=== PATIENT | female | born 1960 | race Two or more races ===

== ENCOUNTER 2020-11-21 10:13 | Emergency (ER) | payer SELFPAY ==
[~2020-11-21] VITALS: Ht 157.5 cm; Wt 72.6 kg
[2020-11-21 10:40] VITALS: BP 160/94
[2020-11-21] MEDS ORDERED: KETOROLAC TROMETH 60MG/2ML VIAL IM ONE (11:30)
== END 2020-11-21 11:57 | disposition home or self-care (01) ==
LOC: ER 10:13
DX: M51.16 Intervertebral disc disorders with radiculopathy, lumbar region (principal)
CPT/HCPCS: 72100; 96372; 99283; J1885

== ENCOUNTER 2023-12-29 10:03 | Emergency (ER) | payer OTHER ==
[~2023-12-29] VITALS: Ht 157.5 cm; Wt 68.0 kg
--- NOTE | 2023-12-29 10:27 | ECG ---
[facility] Test Date: 2023-12-29 Test Time: 10:24:17 Pat Name: SETH NICHOLS Department: ER Room: Gender: F Research Project Coordinator: KIERSTEN : 1960 Requested By: DOUG MURILLO Order Number: [id number] Reading MD: Christoph Parks Measurements Intervals [place] Rate: 60 P: 37 TX: 152 QRS: 54 QRSD: 98 T: 71 QT: 429 QTc: 429 Interpretive Statements Sinus rhythm Low voltage, precordial leads Nonspecific T abnormalities, anterior leads Electronically Signed On 12-29-2023 12:55:15 PST by Christoph Parks Please click the below link to view image of tracing.
--- NOTE | 2023-12-29 10:39 | ED.PDOC ---
HPI (NEURO) HPI Comments This is a 63-year-old female who comes into the ED with chief complain of left- sided weakness. She has a past medical history relevant for hypothyroidism. 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 She also mentions having some vision changes such as blurry vision. She stated that she had a syncope event last year as well as weakness episodes. Denies any recent sick contacts or having any fevers, chills, cough, sore throat, chest pain, shortness of breath, abdominal pain, nausea, vomiting, diarrhea, constipation. Chief Complaint: Dizziness Time Seen by MD: 10:04 Primary Care Provider: UNKNOWN Reviewed Notes: Nurses Notes Mode of Arrival: Ambulatory Severity: Mild Dizziness/Weakness Severity: Does not affect activitie Headache Severity: Mild Timing: Hours Duration: Since onset Past Medical History PAST MEDICAL HISTORY: Denies Surgical History: Appendectomy CONVICT GUARD History: Denies all CONVICT GUARD Hx Family History Family History: Reviewed,noncontributory to illness Social History Smoker: Non-Smoker Alcohol: Denies ETOH Use Drugs: Denies Drug Use Lives In: Home Constitutional: denies: chills, diaphoresis, fatigue, fever, malaise, sweats, weakness, others EENTM: reports: ear pain; denies: blurred vision, double vision, ear bleeding, ear discharge, ear drainage, ear ringing, eye pain, eye redness, hearing loss, mouth pain, mouth swelling, nasal discharge, nose bleeding, nose congestion, nose pain, photophobia, tearing, throat pain, throat swelling, voice changes, ot hers Respiratory: denies: cough, hemoptysis, orthopnea, SOB at rest, shortness of breath, SOB with excertion, stridor, wheezing, others Cardiovascular: denies: chest pain, dizzy spells, diaphoresis, Dyspnea on ex ertion, edema, irregular heart beat, left arm pain, lightheadedness, palpitations, PND, syncope, others Gastrointestinal: denies: abdomen distended, abdominal pain, blood streaked bowels, constipated, diarrhea, dysphagia, difficulty swallowing, hematemesis, melena, nausea, poor appetite, poor fluid intake, rectal bleeding, rectal pain, vomiting, others Genitourinary: denies: abnormal vagina bleeding, burning, dyspareunia, dysuria, flank pain, frequency, hematuria, incontinence, pain, , vagina discharge, urgency, others Neurological: reports: dizziness, headache, paresthesia, tingling, weakness; denies: fainting, left sided numbness, left sided weakness, numbness, pre- existing deficit, right sided numbness, right sided weakness, seizure, speech problems, tremors, others Musculoskeletal: denies: back pain, gout, joint pain, joint swelling, muscle pain, muscle stiffness, neck pain, others Integumetry: denies: bruises, change in color, change in hair/nails, dryness, laceration, lesions, lumps, rash, wounds, others Allergic/Immunocompromised: denies: Difficulty Healing, Frequent Infections, Hives, Itching, others Hematologic/Lymphatic: denies: anemia, blood clots, easy bleeding, easy bruising, swollen glands, others Endocrine: denies: excessive hunger, excessive sweating, excessive thirst, excessive urination, flushing, intolerance to cold, intolerance to heat, unexplained weight gain, unexplained weight loss, others Psychiatric: denies: anxiety, bipolar disorder, depression, hopeless, panic disorder, schizophrenia, sleepless, suicidal, others Physical Exam General Appearance: Mild Distress, Normal HEENT: Normal ENT Inspection, Pharynx Normal, TMs Normal Neck: Full Range of Motion, Non-Tender, Normal, Normal Inspection Respiratory: Chest Non-Tender, Lungs Clear, No Accessory Muscle Use, No Respiratory Distress, Normal Breath Sounds Cardiovascular: No Edema, No JVD, No Murmur, No Gallop, Normal Peripheral Pulses, Regular Rate/Rhythm Breast Exam: Deferred Gastrointestinal: No Organomegaly, Non Tender, No Pulsatile Mass, Normal Bowel Sounds, Soft Genitalia: Deferred Pelvic: Deferred Rectal: Deferred Extremities: No calf tenderness, Normal capillary refill, Normal inspection, Normal range of motion, Non-tender, No pedal edema 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 Was a procedure done?: No Differential Diagnosis (SZ) Seizure: CVA/TIA CVA: Haney's Palsy, Electrolyte Imbalance General Weakness: Labyrinthitis, Vertigo: central, Vertigo: peripheral, Vestibular neuronitis Headache: Migraine X-Ray, Labs, Meds, VS Vital Signs Date Time Temp Pulse Resp B/P (MAP) Pulse Ox O2 Delivery O2 Flow Rate FiO2 12/29/23 11:35 70 18 100 Room Air* 0 21 12/29/23 11:31 97.8 70 18 130/76 (94) 100 97.8 12/29/23 10:24 60 12/29/23 10:12 98.0 72 17 154/91 (112) 95 Lab Test 12/29/23 11:50 12/29/23 11:48 12/29/23 10:40 Range/Units Urine Color Colorless Yellow Urine Clarity Clear Clear Urine pH 5.5 5.0-9.0 Urine Specific [place] 1.005 1.001-1.035 Urine Protein Negative Negative Urine Ketones Negative Negative Urine Blood Negative Negative /uL Urine Nitrite Negative Negative Urine Bilirubin Negative Negative Urine Urobilinogen Normal Negative mg/dL Urine Leukocyte Esterase Negative Negative /uL Urine RBC None seen 0 - 4 /hpf Urine WBC <1 0 - 5 /hpf Urine Squamous Epithelial Cells None seen <5 /hpf Urine Bacteria None seen None Seen /hpf Urine Glucose Normal Normal mg/dL POC Glucose 92 70-106 mg/dl White Blood Count 4.5 4.4-10.8 10^3/uL Red Blood Count 4.76 4.0-5.20 10^6/uL Hemoglobin 14.7 12.2-16.2 g/dL Hematocrit 43.1 36.0-46.0 % Mean Corpuscular Volume 90.4 80.0-100.0 fL Mean Corpuscular Hemoglobin 31.0 28.0-32.0 pg Mean Corpuscular Hemoglobin Concent 34.2 32.0-36.0 g/dL Red Cell Distribution Width 13.8 11.8-14.3 % Platelet Count 211 140-450 10^3/uL Mean Platelet Volume 8.2 6.9-10.8 fL Neutrophils (%) (Auto) 46.2 37.0-80.0 % Lymphocytes (%) (Auto) 41.4 10.0-50.0 % Monocytes (%) (Auto) 7.4 0.0-12.0 % Eosinophils (%) (Auto) 4.1 0.0-7.0 % Basophils (%) (Auto) 0.9 0.0-2.0 % Neutrophils # (Auto) 2.1 1.6-8.6 10 ^3/uL Lymphocytes # (Auto) 1.9 0.4-5.4 10 ^3/uL Monocytes # (Auto) 0.3 0-1.3 10 ^3/uL Eosinophils # (Auto) 0.2 0-0.8 10 ^3/uL Basophils # (Auto) 0 0-0.2 10 ^3/uL Nucleated Red Blood Cells 0.1 % Sodium Level 142 136-145 mmol/L Potassium Level 4.0 3.5-5.1 mmol/L Chloride Level 108 H 98-107 mmol/L Carbon Dioxide Level 28 20-31 mmol/L Anion Gap 6 5-15 Blood Urea Nitrogen 10 9-23 mg/dL Creatinine 0.88 0.550-1.02 mg/dL Glomerular Filtration Rate Calc 73 >90 mL/min BUN/Creatinine Ratio 11.4 10.0-20.0 Serum Glucose 102 74-106 mg/dL Calcium Level 9.9 8.7-10.4 mg/dL Thyroid Stimulating Hormone (TSH) 4.31 0.55-4.78 uIU/mL Current Medications Medications (Trade) Dose Ordered Sig/Selene Route Start Time Stop Time Status Last Admin Meclizine HCl (Antivert Tablet) 50 mg ONCE ONCE PO 12/29/23 11:30 12/29/23 12:16 DC 12/29/23 11:33 On my initial examination, patient appeared in mild distress due to left-sided weakness, strength was 5/5 in all extremities, she was able to walk, noted laterality into the left, HEENT examination revealed possible peripheral vertigo, Romberg was positive, noted drooping of the left side of the lip, able to raise eyebrows, close eyes, without any weakness. We will perform otoscopy which did not reveal any acute signs of infection. We will order CBC, BMP, TSH, UA, head CT. We will continue to reassess. Head CT was unremarkable for any acute neurologic abnormality. CBC was also unremarkable. We will prescribe meclizine 50 mg p.o. once. TSH was normal. On reassessment patient still complain of dizziness. Brain MRI might be needed, we will put the patient up for admission. Spoke to perez, ashish auth number: [id number] Images Reviewed?: Images reviewed and evaluated by me Time of 1ST Reevaluation: 10:28 Reevaluation 1ST: Unchanged Time of 2ND Reevaluation: 11:55 Reevaluation 2ND: Improved Patient Education/Counseling: Diagnosis, Treatment Family Education/Counseling: No Family Present Departure 1 Departure Time of Disposition: 12:03 Impression: Primary Impression: TIA (transient ischemic attack) Additional Impressions: Peripheral vertigo Vestibular neuronitis Labyrinthitis Otitis media CVA (cerebral vascular accident) Hypothyroidism Disposition: ADMITTED INPATIENT Condition: Guarded Critical Care Note Critical Care Time?: No Stability Stability form required: No Heart Score Heart Score: Heart Score Response (Comments) Value History N/A 0 EKG Normal 0 Age >65 2 Risk Factors 1 or 2 risk factors 1 Troponin N/A 0 Total 3 DOUG MALCOLM RESIDENT Dec 29, 2023 10:39
--- NOTE | 2023-12-29 10:52 | DVH ---
EXAM: CT HEAD WITHOUT CONTRAST HISTORY: left sided weakness, dizziness COMPARISON: None TECHNIQUE: Axial images of the head were obtained and reformatted in coronal and sagittal planes. All CT scans at this medical facility are performed using dose modulation techniques as appropriate t o a performed exam including the following: Automated exposure control was utilized; adjustment of th e MA and/or KV according to patient size; and use of iterative reconstruction technique. CT Dose: CTDI volume is 51.63 mGy. Dose-length product is 863.9 mGy*cm FINDINGS: There is no evidence of acute intracranial hemorrhage, mass, mass effect midline shift. There is no h ydrocephalus or extra-axial fluid collection. Davidson-white matter differentiation is maintained.. The visualized paranasal sinuses and mastoid air cells are clear. The calvarium is intact. IMPRESSION: 1. No acute intracranial process. HS:Y
[2023-12-29 11:19] LABS: Basophils # (auto) 0 10 ^3/uL (0-0.2); Basophils % (auto) 0.9 % (0.0-2.0); Eosinophils # (auto) 0.2 10 ^3/uL (0-0.8); Eosinophils % (auto) 4.1 % (0.0-7.0); Hematocrit 43.1 % (36.0-46.0); Hemoglobin 14.7 g/dL (12.2-16.2); Lymphocytes # (auto) 1.9 10 ^3/uL (0.4-5.4); Lymphocytes % (auto) 41.4 % (10.0-50.0); Mean Corpuscular Hgb Conc. 34.2 g/dL (32.0-36.0); Mean Corpuscular Volume 90.4 fL (80.0-100.0); Monocytes # (auto) 0.3 10 ^3/uL (0-1.3); Monocytes % (auto) 7.4 % (0.0-12.0); Neutrophils # (auto) 2.1 10 ^3/uL (1.6-8.6); Neutrophils % (auto) 46.2 % (37.0-80.0); Nucleated Red Blood Cells % 0.1 %; Platelet Count (auto) 211 10^3/uL (140-450); Red Blood Cells 4.76 10^6/uL (4.0-5.20); Red Cell Distribution Width 13.8 % (11.8-14.3); White Blood Cell 4.5 10^3/uL (4.4-10.8)
[2023-12-29] MEDS: MECLIZINE HCL 25 MG TAB PO ONE (11:33)
[2023-12-29 11:35] VITALS: PULSE 70; RESP 18; O2SAT 100
[2023-12-29 12:25] LABS: Chloride 108 mmol/L (98-107)
[2023-12-29 12:26] LABS: Anion Gap 6 (5-15); Carbon Dioxide 28 mmol/L (20-31); Sodium 142 mmol/L (136-145)
[2023-12-29 12:27] LABS: Calcium 9.9 mg/dL (8.7-10.4)
[2023-12-29 12:32] LABS: BUN/Creatinine Ratio 11.4 (10.0-20.0); Blood Urea Nitrogen 10 mg/dL (9-23); Glucose 102 mg/dL (74-106)
[2023-12-29 12:57] LABS: Urine Bacteria None Seen /hpf (None Seen)
[2023-12-29 13:15] LABS: Urine Blood Negative /uL (Negative); Urine Clarity Clear (Clear); Urine Color Colorless (Yellow); Urine Protein, UAD Negative (Negative); Urine Specific Gravity 1.005 (1.001-1.035); Urine Urobilinogen Normal (Negative); Urine WBC <1 /hpf (0 - 5); Urine pH 5.5 (5.0-9.0)
[2023-12-29 15:15] VITALS: PULSE 64; RESP 14; O2SAT 97
[2023-12-29] MEDS ORDERED: ONDANSETRON HCL 4 MG/2 ML VIAL IV PRN (16:00)
[2023-12-29] MEDS ORDERED: ACETAMINOPHEN 325 MG TAB PO PRN (16:00)
[2023-12-29] MEDS ORDERED: LEVO50TA7 PO (16:29)
--- NOTE | 2023-12-29 16:38 | DVHHP2 ---
History of Present Illness Reason for Visit: Dizziness and paresthesias History of Present Illness 63-year-old female who came to the ED with chief complaint of left-sided weakness. Patient has a past medical history hypothyroidism. 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 Patient states she has experienced episodes like this previously, the most recent being last year. CT of the head does not show any intracranial abnormalities. Neurology consult placed. Patient denies chest pain, headache, diaphoresis, shortness of breath, abdominal pain, no nausea, vomiting, fever, or chills endorsed by the patient. Patient was admitted for further evaluation medical management. Past Medical History Hypothyroid Past Surgical History Appendectomy Family History Reviewed noncontributory to the management of this case Smoke: No ALCOHOL: none Drugs: None Lives: Alone Review of Systems Constitutional: No: Fever, Chills, Sweats, Weakness, Malaise, Other Eyes: No: Pain, Vision change, Conjunctivae inflammation, Eyelid inflammation, Other, Redness ENT: Ear pain (Left); No: Ear discharge, Nose pain, Nose discharge, Nose congestion, Mouth pain, Mouth swelling, Throat pain, Throat swelling, Other Respiratory: No: Cough, Dry, Shortness of breath, SOB with excertion, Wheezing, Hemoptysis, Pleuritic Pain, Sputum, Wheezing, Other Cardiovascular: No: Chest Pain, Palpitations, Orthopnea, Paroxysmal Noc. Dyspnea, Edema, Lt Headedness, Other Gastrointestinal: No: Nausea, Vomiting, Abdominal Pain, Diarrhea, Constipation, Melena, Hematochezia, Other Genitourinary: No Dysuria, No Frequency, No Incontinence, No Hematuria, No Retention, No Other Musculoskeletal: No: other, neck pain, shoulder pain, arm pain, back pain, hand pain, leg pain, foot pain Skin: No: Rash, Lesions, Jaundice, Bruising, Other Neurological: Numbness (Left-sided tingling); No: Weakness, Incoordination, Change in speech, Confusion, Seizures, Other Allergies: Coded Allergies: NO KNOWN ALLERGIES (Unverified , 11/21/20) Medications Current Medications Medications Dose Ordered Sig/Selene Route Start Time Stop Time Status Last Admin Dose Admin Acetaminophen 650 mg Q6HP PRN PO 12/29/23 16:00 Ondansetron HCl 4 mg Q4HP PRN IV 12/29/23 16:00 Exam Vital Signs Vital Signs Date Time Temp Pulse Resp B/P (MAP) Pulse Ox O2 Delivery O2 Flow Rate FiO2 12/29/23 15:15 64 14 97 Room Air* 0 21 12/29/23 15:15 97.9 149/56 (87) 97.9 General Appearance: Alert, Oriented X3, Cooperative, No acute distress HEENT: Atraumatic, PERRLA, EOMI, Mucous membr. moist/pink Respiratory: Clear to auscultation, Normal air movement Cardiovascular: Regular rate, Normal S1, Normal S2, No murmurs Abdominal: Normal bowel sounds, Soft, No tenderness, No hepatospenomegaly, No masses Extremities: No clubbing, No cyanosis, No edema, Normal pulses, No tenderness/swelling Skin: No rashes, No breakdown, No significant lesion Neuro: Normal gait, Normal speech, Strength at 5/5 X4 ext, Normal tone, Sensation intact, Cranial nerves 3-12 NL, Reflexes 2+ Psych/Mental Status: Mental status NL, Mood NL Labs/Xrays Labs, imaging and ED notes reviewed Labs Test 12/29/23 11:50 12/29/23 11:48 12/29/23 10:40 Range/Units Urine Color Colorless Yellow Urine Clarity Clear Clear Urine pH 5.5 5.0-9.0 Urine Specific [place] 1.005 1.001-1.035 Urine Protein Negative Negative Urine Ketones Negative Negative Urine Blood Negative Negative /uL Urine Nitrite Negative Negative Urine Bilirubin Negative Negative Urine Urobilinogen Normal Negative mg/dL Urine Leukocyte Esterase Negative Negative /uL Urine RBC None seen 0 - 4 /hpf Urine WBC <1 0 - 5 /hpf Urine Squamous Epithelial Cells None seen <5 /hpf Urine Bacteria None seen None Seen /hpf Urine Glucose Normal Normal mg/dL POC Glucose 92 70-106 mg/dl White Blood Count 4.5 4.4-10.8 10^3/uL Red Blood Count 4.76 4.0-5.20 10^6/uL Hemoglobin 14.7 12.2-16.2 g/dL Hematocrit 43.1 36.0-46.0 % Mean Corpuscular Volume 90.4 80.0-100.0 fL Mean Corpuscular Hemoglobin 31.0 28.0-32.0 pg Mean Corpuscular Hemoglobin Concent 34.2 32.0-36.0 g/dL Red Cell Distribution Width 13.8 11.8-14.3 % Platelet Count 211 140-450 10^3/uL Mean Platelet Volume 8.2 6.9-10.8 fL Neutrophils (%) (Auto) 46.2 37.0-80.0 % Lymphocytes (%) (Auto) 41.4 10.0-50.0 % Monocytes (%) (Auto) 7.4 0.0-12.0 % Eosinophils (%) (Auto) 4.1 0.0-7.0 % Basophils (%) (Auto) 0.9 0.0-2.0 % Neutrophils # (Auto) 2.1 1.6-8.6 10 ^3/uL Lymphocytes # (Auto) 1.9 0.4-5.4 10 ^3/uL Monocytes # (Auto) 0.3 0-1.3 10 ^3/uL Eosinophils # (Auto) 0.2 0-0.8 10 ^3/uL Basophils # (Auto) 0 0-0.2 10 ^3/uL Nucleated Red Blood Cells 0.1 % Sodium Level 142 136-145 mmol/L Potassium Level 4.0 3.5-5.1 mmol/L Chloride Level 108 H 98-107 mmol/L Carbon Dioxide Level 28 20-31 mmol/L Anion Gap 6 5-15 Blood Urea Nitrogen 10 9-23 mg/dL Creatinine 0.88 0.550-1.02 mg/dL Glomerular Filtration Rate Calc 73 >90 mL/min BUN/Creatinine Ratio 11.4 10.0-20.0 Serum Glucose 102 74-106 mg/dL Calcium Level 9.9 8.7-10.4 mg/dL Thyroid Stimulating Hormone (TSH) 4.31 0.55-4.78 uIU/mL Assessment/Plan Assessment/Plan Possible TIA Admit to medical/surgical Consult Neurology CT head unremarkable. Continue stroke assessment Patient does not have any new deficits. Patient passed swallow Hypertensive urgency Hydralazine p.r.n. 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 Procedure Category Date Status Time Admit ADMIT 12/29/23 Transmitted 15:48 Code Status CODE 12/29/23 Transmitted 15:48 Vital Signs [facility] 12/29/23 In Process 15:48 Review Orders With [facility] 12/29/23 In Process Adm.Md 15:48 Bedrest With Bathroom DAVIS 12/29/23 In Process Privileg 15:48 Regular Diet DIET 12/29/23 Transmitted Dinner Acetaminophen Tablet PHA 12/29/23 In Process (Tylenol Tablet) 16:00 Notify Md Of Changes [facility] 12/29/23 In Process From Base 15:48 Advance Directive [facility] 12/29/23 In Process 15:48 Basic Metabolic Panel LAB 12/30/23 Verified 04:00 Complete Blood Count LAB 12/30/23 Verified 04:00 Patient Condition ORDERS 12/29/23 Transmitted 15:48 Allergies [facility] 12/29/23 In Process 15:48 Ondansetron Hcl PHA 12/29/23 In Process (Zofran) 16:00 * Neurology Consult CONS 12/29/23 Transmitted 16:01 Levothyroxine Tablet PHA 12/30/23 Verified (Synthroid Tablet) 10:00 Thyroid Stimulating LAB 12/29/23 Verified Hormone 16:28 Date of Service: Dec 29, 2023 Billing Provider: NILSON PANDYA Common Visit Codes: [id number] INP/OBS CARE (HIGH) NILSON PANDYA Dec 29, 2023 16:38
[2023-12-29 18:15] VITALS: BP 122/69; PULSE 70; RESP 16; TEMP 98; O2SAT 97
[2023-12-30] MEDS ORDERED: LEVOTHYROXINE SODIUM 50 MCG TAB PO SCH (07:00)
== END 2023-12-29 17:26 | disposition short-term general hospital (02) ==
LOC: ER 10:03 → UNDOADMIN 15:48 → OVERFLOW 15:48 → ER 16:01
DX: I63.9 Cerebral infarction, unspecified (principal); G45.9 Transient cerebral ischemic attack, unspecified; E03.9 Hypothyroidism, unspecified; H66.92 Otitis media, unspecified, left ear; H81.392 Other peripheral vertigo, left ear; H83.02 Labyrinthitis, left ear; H81.22 Vestibular neuronitis, left ear; Z90.49 Acquired absence of other specified parts of digestive tract
CPT/HCPCS: 36415; 70450; 80048; 81001; 82962; 84443; 85025; 93005; 99285; J8597